=== PATIENT | female | born 1960 | race Hispanic/Latino ===

== ENCOUNTER 2023-05-17 09:03 | Emergency (ER) | payer BC ==
[~2023-05-17] VITALS: Ht 160 cm; Wt 84.4 kg
[~2023-05-17 09:03] MED LIST: DOCU-116 PO; GLIP5TAB11 PO; LACT10SO9 PO; LEVO75CA5 PO; LINA5TAB PO; MERO1VIA23 IVPB; POLY17PO4 PO
[2023-05-17 09:10] VITALS: BP 178/86; PULSE 91; RESP 16; O2SAT 98
[2023-05-17 12:39] LABS: BILIRUBIN,URINE NEGATIVE (NEGATIVE); GLUCOSE, URINE (UA) 200 mg/dL (NEGATIVE); KETONES,URINE NEGATIVE (NEGATIVE); LEUKOCYTE ESTERASE ,URINE 500 Leu/uL (NEGATIVE); NITRATE,URINE NEGATIVE (NEGATIVE); OCCULT BLOOD,URINE SMALL (NEGATIVE); PH,URINE 6.5 (5.0-8.0); PROTEIN,URINE 20 mg/dL (NEGATIVE); UROBILINOGEN,URINE 0.2 mg/dL (0.2-1.0)
[2023-05-17 12:43] LABS: ADD UA MICROSCOPIC YES; APPEARANCE,URINE HAZY (CLEAR); COLOR,URINE YELLOW (YELLOW)
[2023-05-17] MEDS ORDERED: TAMS-1 PO (12:48)
[2023-05-17] MEDS ORDERED: SULF1TAB42 PO (12:48)
[2023-05-17 12:50] LABS: BACTERIA,URINE MOD /HPF (None Seen); MUCUS,URINE FEW LPF (None Seen); SQUAMOUS EPITHELIAL CELL,UR RARE /HPF (0-2); WBC CLUMP FEW /HPF (0-1)
== END 2023-05-17 13:10 | disposition home or self-care (01) ==
LOC: EDH 09:03
DX: T83.022A Displacement of nephrostomy catheter, initial encounter (principal); N39.0 Urinary tract infection, site not specified; E11.9 Type 2 diabetes mellitus without complications; E78.00 Pure hypercholesterolemia, unspecified; I10 Essential (primary) hypertension; Z79.84 Long term (current) use of oral hypoglycemic drugs; Z88.0 Allergy status to penicillin; Z90.49 Acquired absence of other specified parts of digestive tract; Y82.9 Unspecified medical devices associated with adverse incidents; Y92.89 Other specified places as the place of occurrence of the external cause
CPT/HCPCS: 74018; 81001; 87077; 87088; 87186